=== PATIENT | female | born 1955 | race Caucasian/White ===

== ENCOUNTER → 2021-05-15 11:11 | Outpatient (CLI) | payer MEDICARE, OTHER, SELFPAY ==
[2021-05-15 15:57] LABS: COVID19 -Nasal RAPID Negative (Negative)
== END ==
PROVIDERS: Visit Provider Physician Assistant
DX: Z01.812 Encounter for preprocedural laboratory examination (principal); Z20.822 Contact with and (suspected) exposure to COVID-19
CPT/HCPCS: 87635; C9803

== ENCOUNTER → 2021-07-21 10:25 | Outpatient (CLI) | payer MEDICARE, OTHER, SELFPAY ==
[2021-07-21 14:56] LABS: COVID19 -Nasal RAPID Negative (Negative)
== END ==
PROVIDERS: PCP Nurse Practitioner Family; Visit Provider Nurse Practitioner Family
DX: Z20.822 Contact with and (suspected) exposure to COVID-19 (principal)
CPT/HCPCS: 87635; C9803

== ENCOUNTER 2021-07-24 07:29 | Day surgery (SDC) | payer MEDICARE, OTHER, SELFPAY ==
[2021-07-24 07:56] VITALS: BP 156/85; PULSE 65; RESP 16; TEMP 36.4; O2SAT 97; BMI 24.6
[2021-07-24] MEDS: SODIUM CHLORIDE 0.9% 1,000 ML 100 ML IV (08:13)
--- NOTE | 2021-07-24 08:22 | PM.HP.1 ---
History of Present Illness History of Present Illness Date Patient Seen: 07/24/21 Time Patient Seen: 08:22 Chief complaint: SDC Narrative: Personal history of colon polyps Patient History Medical History History of COVID-19 (~05/17/21) IVETT on CPAP Polymyalgia rheumatica Family & Social History Social History: household members spouse Tobacco & Substance use: Smoking Status Former smoker alcohol intake current alcohol intake frequency a few times a week Substance Use Type does not use Meds Home Medications and Allergies Home Medications Medication Instructions Recorded Confirmed Type turmeric PO DAILY 07/24/21 History Allergies Allergy/AdvReac Type Severity Reaction Status Date / Time amoxicillin Allergy Intermediate Rash on Verified 07/24/21 07:59 stomach and legs Review of Systems Review of Systems ROS: Yes All systems reviewed with the patient and are negative except as otherwise documented Exam Vital Signs (past 8 hours): - 07/24/21 07:56 Temperature 97.5 F L Pulse Rate 65 Respiratory Rate 16 Blood Pressure 156/85 H Pulse Oximetry 97 Oxygen Delivery Method Room Air Const General: cooperative and comfortable Orientation: alert HENMT Head: normocephalic Ears: external ears normal Nose: external nose normal Face and sinus: normal facial exam Mouth: oral mucosae normal Eyes General: appearance normal, both eyes and all related structures Neck Neck: normal visual inspection Chest Chest: normal inspection of the chest Resp Effort & Inspection: normal respiratory effort Cardio Rate: regular rate GI Inspection: normal to inspection Skin General: no rashes or lesions noted and No jaundice Neuro General: patient alert and moves all extremities Cognition: normal cognition Speech: speech normal Extrem General: no pedal edema Psych Appearance: grossly normal Assessment & Plan Assessment & Plan narrative: 65-year-old with a personal history of colon polyps. Colonoscopy is planned for today. Time Spent With Patient Critical Care time: I spent a total of [] minutes of critical care time on this patient's care today; this time is exclusive of procedural time.
--- NOTE | 2021-07-24 08:24 | PM.PREOP ---
Pre-operative Note COVID-19 COVID-19 status: Negative Result date/Date tested (Pos, Neg/Pending): 07/21/21 Criteria for continued procedure: Possibility delay results in more complex future surgery or treatment Interval Note History & Physical reviewed/Exam performed by Physician: Yes Changes to H&P: No ASA Class (for procedural sedation): I
--- NOTE | 2021-07-24 09:47 | PM.OP.COLON ---
Operative Date/Time/Diagnoses Date of procedure: 07/24/21 Time of procedure: 09:48 Pre-op diagnosis: Personal history of colon polyps Post-op diagnosis: same Procedure & Clinicians Study performed: Colonoscopy Same procedure as scheduled: Yes Indications: Personal history of colon polyps Surgeon: Fred Fierro Procedure Notes SCOAP/Timeout: Done Procedure in detail: After the risks and benefits were explained, written and verbal informed consent was obtained. The patient was brought into the procedure room and placed into the left lateral decubitus position. Please see nurse community reinvestment act officer notes for sedation details. Digital rectal examination was accomplished. The scope was introduced into the patient and advanced under direct visualization to the cecum as identified by the appendiceal orifice and ileocecal valve. The scope was slowly withdrawn to carefully examine the mucosa for any defects or lesions. Comprehensive imaging was accomplished throughout the rectum including the dentate line. The colon was decompressed, the scope was then removed from the patient who tolerated the procedure well. Adult colonoscope Bowel prep adequate Scope withdrawal time: 6 minutes Sedation minutes: 18 Specimen(s): none sent Complications: none Impression: There was some mild diverticulosis throughout the sigmoid colon. Slightly tortuous exam through the left colon and mid colon. No significant polyps mass lesions or inflammatory features identified throughout. Grade 1 internal hemorrhoids with hypertrophied anal papillae were noted. Endoscopic diagnosis 1. Grade 1 hemorrhoids 2. Diverticulosis Post-procedure Plan for aftercare: Repeat colonoscopy 10 years time sooner should symptoms warrant an earlier exam. Disposition: PACU
[2021-07-24 09:50] VITALS: BP 105/65; PULSE 58; RESP 17; TEMP 36.3; O2SAT 100
[2021-07-24 09:55] VITALS: BP 113/62; PULSE 51; PULSE 52; RESP 15; RESP 16; O2SAT 100
[2021-07-24 10:00] VITALS: BP 132/74; PULSE 50; RESP 16; O2SAT 100
[2021-07-24 10:09] VITALS: BP 135/66; PULSE 48; RESP 15; O2SAT 100
[2021-07-24 10:13] VITALS: BP 132/82; PULSE 54; RESP 16; O2SAT 100
== END 2021-07-24 10:32 | disposition home or self-care (01) ==
PROVIDERS: PCP Nurse Practitioner Family; Referring Provider Internal Medicine Gastroenterology; Visit Provider Internal Medicine Gastroenterology
PROC: 0DJD8ZZ Inspection of Lower Intestinal Tract, Via Natural or Artificial Opening Endoscopic (ICD-10-PCS; CPT 45378; principal; 2021-07-24 09:00)
DX: Z12.11 Encounter for screening for malignant neoplasm of colon (principal); Z86.010 Personal history of colon polyps; G47.33 Obstructive sleep apnea (adult) (pediatric); M35.3 Polymyalgia rheumatica; Z86.16 Personal history of COVID-19; K64.4 Residual hemorrhoidal skin tags; K57.30 Diverticulosis of large intestine without perforation or abscess without bleeding; K64.0 First degree hemorrhoids
CPT/HCPCS: G0105